=== PATIENT | male | born 1985 | race Caucasian/White ===

== ENCOUNTER 2022-09-18 19:45 | Emergency (ER) | payer MEDICAID ==
[~2022-09-18] VITALS: Ht 172.7 cm; Wt 62.1 kg
--- NOTE | 2022-09-18 20:05 | NUR ---
BIBS FOR L POSTERIOR EAR PAIN X 1 WEEK. PT A/OX4. TOLERATING R/A WELL WITH NO RESP DISRESS. PT AMBULATORY WITH STEADY GAIT. SAFETY MEASURES IN PLACE.
[2022-09-18] MEDS ORDERED: IV NS 0.9% 1,000 ML BAG IV ONE (20:30)
[2022-09-18] MEDS ORDERED: KETOROLAC TROMETHAMINE INJ 30 MG/ML VIAL ONE (20:30)
[2022-09-18] MEDS ORDERED: CEFTRIAXONE 1GM BAG (ER ONLY) 1 GM/50 ML PIGGYBACK IV ONE (20:30)
[2022-09-18] MEDS ORDERED: KETOROLAC TROMETHAMINE INJ 30 MG/ML VIAL IV ONE (20:30)
[2022-09-18] MEDS ORDERED: CEFTRIAXONE 1GM BAG (ER ONLY) 50 ML IV ONE (20:30)
--- NOTE | 2022-09-18 20:40 | NUR ---
IV LINE PLACED R AC G20. BLOOD DRAWN AND SENT TO LAB. COVID SWAB DONE AND SENT TO LAB.
[2022-09-18] MEDS ORDERED: IOHEXOL-300 100 ML VIAL IV ONE (20:48)
[2022-09-18] MEDS ORDERED: IV NS 0.9% 250 ML IV ONE (20:48)
--- NOTE | 2022-09-18 21:05 | NUR ---
PT TAKEN TO CT VIA JAYE
--- NOTE | 2022-09-18 21:19 | NUR ---
PT RETURNED TO ER BED [address]
[2022-09-18 21:20] LABS: BASOPHILS % (AUTO) 0.1 % (0.0-2.0); EOSINOPHILS % (AUTO) 1.5 % (0.0-6.0); HEMATOCRIT 40 % (39-51); HEMOGLOBIN 13.5 g/dL (13.5-17.5); LYMPHOCYTES # (AUTO) 1.1 K/uL (0.8-4.8); LYMPHOCYTES % (AUTO) 11.4 % (20.0-44.0); MEAN CORPUSCULAR HGB CONC 34 g/dl (31.0-36.0); MEAN CORPUSCULAR VOLUME 90 fL (80-96); MONOCYTES # (AUTO) 0.5 K/uL (0.1-1.30); MONOCYTES % (AUTO) 5.6 % (2.0-12.0); NEUTROPHILS # (AUTO) 7.9 K/uL (1.8-8.9); NEUTROPHILS % (AUTO) 81.4 % (43.0-81.0); PLATELET COUNT (AUTO) 417 K/uL (150-450); RED BLOOD CELL COUNT(AUTO) 4.45 MIL/uL (4.5-6.0); WHITE BLOOD COUNT (AUTO) 9.7 K/uL (4.3-11.0)
[2022-09-18 21:34] LABS: ALBUMIN 3.2 g/dL (3.4-5.0); BILIRUBIN,DIRECT 0.2 mg/dL (0.0-0.2); BILIRUBIN,TOTAL 0.4 mg/dL (0.2-1.0); CALCIUM, SERUM 8.7 mg/dL (8.5-10.1); CREATININE 1.1 mg/dL (0.6-1.3); POTASSIUM 3.5 mmol/L (3.5-5.1); TOTAL PROTEIN, SERUM 8.4 g/dL (6.4-8.2)
[2022-09-18] MEDS ORDERED: AMOX-430 PO (22:21)
--- NOTE | 2022-09-18 22:35 | NUR ---
IV CANNULA REMOVED
--- NOTE | 2022-09-18 22:35 | NUR ---
Patient does not wish to proceed with medical care recommended by Dr. Overton. Patient given information related to possible complications, up to and including , which could occur as a result of leaving the hospital at this time. Patient verbalizes understanding of risks involved due to leaving against medical advice. Patient has signed AMA form. Pt wished to go directly to [facility]
[2022-09-18 22:36] VITALS: BP 143/85
== END 2022-09-18 22:38 | disposition left against medical advice (07) ==
LOC: ER 19:50
DX: H70.002 Acute mastoiditis without complications, left ear (principal); Z20.822 Contact with and (suspected) exposure to COVID-19; L03.211 Cellulitis of face; Z59.00 Homelessness unspecified
CPT/HCPCS: 99285; 96365; 70487; 96375; 87426; 85025; 80048; 80076; 36415; J1885; J7030; J7050; J0696; Q9967; C9803